=== PATIENT | female | born 1995 | race African-American/Black ===

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

== ENCOUNTER 2017-09-21 21:23 | Emergency (ER) | payer OTHER ==
[~2017-09-21] VITALS: Ht 161.3 cm; Wt 79.5 kg
[~2017-09-21 21:23] MED LIST changes: -Z.0.NO CURRENT MEDS; +ZOFR4TAB3 SL
[2017-09-21 21:55] VITALS: BP 136/90; PULSE 82; RESP 18; TEMP 98.7; O2SAT 99
[2017-09-21] MEDS ORDERED: IBUP1TAB7 PO (23:55)
[2017-09-21] MEDS ORDERED: CEPH-460 PO (23:55)
--- NOTE | 2017-09-21 23:56 | PD ---
HPI Chief Complaint: Laceration/Skin Injury Time Seen by Provider: 23:40 Travel History International Travel<30 days: No Contact w/Intl Traveler<30days: No Traveled to known affect area: No History of Present Illness HPI Patient is a 21-year-old female presenting to emergency department for evaluation of a laceration to her right fourth finger nail bed. Patient was using the salsa maker at [place] when she slipped cutting her nail bed. Tetanus vaccine is not up-to-date. Patient denies any pain. She denies any numbness, tingling. Symptom onset was sudden, symptom severity is mild. Symptoms are exacerbated to touch and movement. PFSH Past Medical History Medical History: Denies Significant Hx Developmental Delay: No Diminished Hearing: No Immunizations Current: Yes ?: Not Social History Alcohol Use: No Tobacco Use: No Substance Use: No Allergies-Medications (Allergen,Severity, Reaction): Coded Allergies: No Known Allergies (Verified , 12/08/11) Reported Meds & Prescriptions Reported Meds & Active Scripts Active Zofran Odt (Ondansetron Odt) 4 Mg Tab 4 Mg SL Q8HR PRN Review of Systems Except as stated in HPI: all other systems reviewed are Neg Skin: Positive Change in nails Physical Exam Narrative GENERAL: Overweight, well-developed, alert -[place] female. Presenting in no acute distress. SKIN: Warm and dry. Superficial laceration to right fourth fingernail bed. HEAD: Normocephalic. EYES: No scleral icterus. No injection or drainage. NECK: Supple, trachea midline. No JVD or lymphadenopathy. CARDIOVASCULAR: Regular rate and rhythm without murmurs, gallops, or rubs. RESPIRATORY: Breath sounds equal bilaterally. No accessory muscle use. GASTROINTESTINAL: Abdomen soft, non-tender, nondistended. MUSCULOSKELETAL: No cyanosis, or edema. BACK: Nontender without obvious deformity. No CVA tenderness. Data Data Last Documented VS Vital Signs Date Time Temp Pulse Resp B/P (MAP) Pulse Ox O2 Delivery O2 Flow Rate FiO2 09/21/17 21:55 98.7 82 18 136/90 (105) 99 Orders Orders Tetanus/Diphtheria Tox Adult (Tetanus/Di (09/22/17 00:00) Wound Care (09/21/17 23:46) MDM Medical Decision Making Medical Screen Exam Complete: Yes Emergency Medical Condition: Yes Interpretation(s) Vital Signs Date Time Temp Pulse Resp B/P (MAP) Pulse Ox O2 Delivery O2 Flow Rate FiO2 09/21/17 21:55 98.7 82 18 136/90 (105) 99 Differential Diagnosis Nail avulsion versus laceration versus fingertip avulsion versus other Narrative Course Patient presented for evaluation of a nail avulsion to her right fourth finger nail bed. Nail was cleaned with chlorhexidine and water. Patient's tetanus vaccine was updated in the emergency department. Dermabond was used to hold the nail in place. Again nail was not completely avulsed and there was just a superficial laceration to the nailbed. Patient was encouraged to keep it clean and dry, avoid submersion in water. She was advised on signs and symptoms of infection. She was encouraged to return to emergency department immediately for any new or worsening symptoms. Diagnosis Primary Impression: Nailbed laceration, finger Qualified Codes: S61.319A - Laceration without foreign body of unspecified finger with damage to nail, initial encounter Referrals: Primary Care Physician Patient Instructions: General Instructions, Nail Avulsion (ED) Departure Forms: Tests/Procedures, Work Release Special Instructions: Do not submerge finger in water until completely healed. May work with plastic gloves, gloves need to be changed often to prevent moisture buildup. Additional Instructions: Keep finger clean and dry, do not submerge in water Return to emergency department for any new or worsening symptoms Follow-up with your primary doctor Wear finger splint to protect finger. Complete antibiotics as prescribed Med/Other Pt SpecificInfo: Prescription(s) given Scripts Ibuprofen (Ibuprofen) 800 Mg Tab 800 MG PO Q6HR Y for PAIN, #40 TAB 0 Refills Prov: Alice Avalos 09/21/17 Cephalexin (Keflex) 500 Mg Cap 500 MG PO Q12H for Infection for 5 Days, #10 CAP 0 Refills Prov: Alice Avalos 09/21/17 Disposition: 01 DISCHARGE HOME Condition: Stable Alice Aavlos Sep 21, 2017 23:56
[2017-09-22] MEDS ORDERED: TETANUS/DIPHTHERIA TOXOID ADULT 0.5 ML VIAL IM ONE
== END 2017-09-22 00:49 | disposition home or self-care (01) ==
LOC: NEPD 21:23
DX: S61.314A Laceration without foreign body of right ring finger with damage to nail, initial encounter (principal); W31.82XA Contact with other commercial machinery, initial encounter; Y93.G1 Activity, food preparation and clean up; Y92.511 Restaurant or cafe as the place of occurrence of the external cause; Y99.0 Civilian activity done for income or pay; Z23 Encounter for immunization
CPT/HCPCS: 11730; 90471; 90714